=== PATIENT | female | born 1995 | race Caucasian/White ===

== ENCOUNTER 2017-05-06 19:58 | Emergency (ER) | payer OTHER ==
[~2017-05-06] VITALS: Ht 162.6 cm; Wt 72.0 kg
[2017-05-06 20:01] VITALS: BP 134/83; TEMP 37.4; Ht 162.6 cm; Wt 72.0 kg
[2017-05-06] MEDS ORDERED: PROPARACAINE HCL 0.5% OP SOLN 15 ML BTL OP STA (20:23)
[2017-05-06] MEDS ORDERED: CIPROFLOXACIN HCL 0.3% OP SOLN 2.5 ML BTL OP ONE (21:00)
[2017-05-06 21:12] VITALS: PULSE 92; O2SAT 98
--- NOTE | 2017-05-07 00:20 | EMERGENCY ROOM VISIT NOTE ---
History First contact with patient: 20:21 Chief Complaint: EYE ASSESSMENT Stated Complaint: R EYE IRRITATION,BLOOD SHOT, SHARP PAIN, WATERY,OR History of Present Illness The patient is a 21 year old female who presents to the Emergency Room with complaints of right eye irritation, photophobia and sensation of something under the eyelid. The patient does wear daily wear contacts. They are 2 weeks old, and she has used other packs from this lot without any problems. The patient reports that she noticed eye discomfort and dryness last evening. She then took her contact lenses out, and awoke this morning with these symptoms. And uses a hydrogen peroxide flue cleaner. She denies any recent upper respiratory infections. She currently rates her discomfort a 7 out of 10. The patient reports that she does have an appointment scheduled with an bleacher lard tomorrow afternoon, but came here tonight because of her symptoms. Review of Systems 10 system review was performed and was negative except for pertinent positives and negatives as indicated in history of present illness Past Medical/Surgical History Medical Problems: (1) [place] disease Surgical Problems: (1) Status post LASIK surgery Family History FH: hypertension Social History Smoking Status: Never Smoker Alcohol Use: none Marital Status: single Housing Status: lives with friends Occupation Status: unemployed Physical Exam Vital Signs Date Time Temp Pulse Resp B/P (MAP) Pulse Ox O2 Delivery O2 Flow Rate FiO2 05/06/17 21:12 92 18 98 05/06/17 20:01 37.4 102 16 134/83 100 Room Air Right Eye Acuity: 20/70 corrected Left Eye Acuity: 20/25 -2 corrected Pain Rating (0-10): 4.0 Physical Exam CONSTITUTIONAL: Healthy and well nourished. Alert and oriented X 3 with positive affect. Patient does not appear in any acute distress. HEENT: Normocephalic, atraumatic. Pupils equal, round and reactive. Examination shows no significant conjunctival injection of the right eye. EOMs intact. No rhinorrhea, serous/purulent effusion of the ears or mucopurulent drainage from the right eye. NECK: Full active range of motion without discomfort. RESPIRATORY: Clear to auscultation bilaterally with no wheezing, crackles, rhonchi or stridor. CARDIOVASCULAR: Regular rate and rhythm with no murmurs, rubs or gallops. INTEGUMENTARY: No rash or other significant dermatologic conditions noted. NEUROLOGIC: No focal neurologic deficits noted. Medical Decision & Procedures Medications Administered Medications (Trade) Dose Ordered Sig/Alexis Route Start Time Stop Time Status Last Admin Dose Admin Ciprofloxacin HCl (Ciprofloxacin 0.3% Op Soln) 2 drops NOW ONCE OP 05/06/17 21:00 05/06/17 21:01 DC 05/06/17 21:04 2 DROPS Procedure Slit lamp and fluorescein exam were performed. 2 drops of Alcaine were instilled into the right eye, which completely resolved the patient's discomfort. Serevent exam did not show any hyphema or evidence of foreign bodies in the lower conjunctival sac or under the upper eyelid. Fluorescein exam shows a small punctate lesion of the cornea at 7:00 and near the central axis. No other lesions noted. ED Course Patient history and physical exam were performed. Nurse's notes were reviewed. Vital signs were reviewed and were normal. Slit lamp and fluorescein exam shows a corneal lesion, indeterminant as a possible infection versus healing abrasion. As the patient does wear contact lenses, the patient will be covered with Ciloxan 0.3% ophthalmic solution. She was dispensed the bottle of the antibiotic from the emergency department. She was also instructed to refrain from contact lens use over the next 1.5-2 weeks. She does have a follow-up appointment tomorrow with ophthalmology for further reevaluation. The patient was happy with plan of care, and denied any eye discomfort at the conclusion of my exam. Medical Decision Medication Reconcilliation Current Medication List: was personally reviewed by me Blood Pressure Screening Patient's blood pressure: Normal blood pressure Impression Primary Impression: Corneal injury of right eye due to contact lens Departure Information Dispostion Home / Self-Care Condition FAIR Referrals No Doctor, Assigned (PCP) Forms IMPORTANT VISIT INFORMATION Patient Instructions My [facility] Additional Instructions 2 ciprofloxacin antibiotic eyedrops every 4-6 hrs (while awake) for 7 days. Ibuprofen 600 mg and/or Tylenol 1000 mg every 8 hours. You may also alternate these medications for more effective pain relief: Ibuprofen --4 HRS--> Tylenol --4 HRS--> ibuprofen --4 HRS--> Tylenol .... You may also intermittently apply a cool compress and wear sunglasses for additional relief. No contact lens use for 14 days. Start with all-new contact lenses, solution, rewetting drops and cosmetics. Follow-up with your bleacher lard tomorrow as scheduled for reevaluation.
== END 2017-05-06 21:14 | disposition home or self-care (01) ==
LOC: C.EDB 20:00 → C.EDD 21:14
DX: S05.8X1A Other injuries of right eye and orbit, initial encounter (principal); X58.XXXA Exposure to other specified factors, initial encounter; Z98.890 Other specified postprocedural states; Z82.49 Family history of ischemic heart disease and other diseases of the circulatory system